=== PATIENT | female | born 1980 | race Caucasian/White ===

== ENCOUNTER → 2016-05-22 | Outpatient (CLI) | payer BC ==
--- NOTE | 2016-05-22 17:01 | RAD ---
Obstetrical ultrasound, 05/22/2016: History: Check anatomy Transabdominal scans were obtained. There is a single intrauterine fetus present in a transverse orientation with the head on the maternal left. The biparietal diameter measures 5.1 cm compatible with a gestational age of 21-22 weeks. This corresponds well to the other measurements and yields a sonographic EDC of 09/28/2016. Normal activity and heart motion were seen. The heart rate was 133 bpm. No specific abnormality is detected. The placenta lies anteriorly with no evidence of a placenta previa. The amniotic fluid volume appears to be within normal limits with KASSY calculated at 17.4. The cervix was not clearly delineated on today's exam. IMPRESSION: Single viable intrauterine fetus of 21-22 weeks gestational age as described above.
== END | disposition home or self-care (01) ==
LOC: US 12:15
PROVIDERS: ATTEND Obstetrics & Gynecology
DX: O09.90 Supervision of high risk pregnancy, unspecified, unspecified trimester (principal); O26.849 Uterine size-date discrepancy, unspecified trimester
CPT/HCPCS: 76805

== ENCOUNTER → 2016-07-31 | Outpatient (CLI) | payer BC ==
[2016-07-17 11:32] VITALS: BP 129/71
[~2016-07-31] MED LIST: PNV1TABL25 PO
== END | disposition home or self-care (01) ==
LOC: LAB 09:49
PROVIDERS: ATTEND Obstetrics & Gynecology
DX: O09.90 Supervision of high risk pregnancy, unspecified, unspecified trimester (principal)
CPT/HCPCS: 36415; 82947; 82950

== ENCOUNTER 2016-08-14 10:48 | Observation (INO) | payer BC ==
[2016-07-17 11:32] VITALS: BP 129/71
== END 2016-08-14 11:45 | disposition home or self-care (01) ==
LOC: 3 SO LND 10:48
PROVIDERS: ADMIT Obstetrics & Gynecology; ATTEND Obstetrics & Gynecology
DX: O24.419 Gestational diabetes mellitus in pregnancy, unspecified control (principal); Z3A.33 33 weeks gestation of pregnancy
CPT/HCPCS: G0378; G0379; 59025

== ENCOUNTER 2016-09-11 11:27 | Observation (INO) | payer BC ==
[2016-07-17 11:32] VITALS: BP 129/71
== END 2016-09-11 12:20 | disposition home or self-care (01) ==
LOC: 3 SO LND 11:27
PROVIDERS: ADMIT Obstetrics & Gynecology; ATTEND Obstetrics & Gynecology
DX: O24.419 Gestational diabetes mellitus in pregnancy, unspecified control (principal); Z3A.37 37 weeks gestation of pregnancy
CPT/HCPCS: G0378; G0379; 59025

== ENCOUNTER 2016-09-18 12:18 | Observation (INO) | payer BC ==
[2016-07-17 11:32] VITALS: BP 129/71
[~2016-09-18] VITALS: Ht 162.6 cm; Wt 98.9 kg
[2016-09-18 13:22] LABS: BASO % 0 % (0-3); EOS % 1 % (0-3); HEMATOCRIT 34.5 % (36.0-47.0); HEMOGLOBIN 11.7 g/dL (12.0-15.5); LYMPH % 23 % (24-48); MEAN CORPUSCULAR HEMOGLOBIN 29 pg (25-35); MEAN CORPUSCULAR HGB CONC 34 g/dL (31-37); MEAN CORPUSCULAR VOLUME 86 fL (79-100); MONO % 9 % (0-9); NEUT % 68 % (31-73); PLATELET COUNT 184 x10^3/uL (140-400); RED CELL DISTRIBUTION WIDTH 13.5 % (11.5-14.5); WHITE BLOOD COUNT 8.9 x10^3/uL (4.0-11.0)
[2016-09-18 13:41] LABS: ALBUMIN 2.2 g/dL (3.4-5.0); ALBUMIN/GLOBULIN RATIO 0.6 (1.0-1.7); CALCIUM 8.7 mg/dL (8.5-10.1); CREATININE 0.6 mg/dL (0.6-1.0); GFR 114.4; POTASSIUM 3.7 mmol/L (3.5-5.1); TOTAL BILIRUBIN 0.3 mg/dL (0.2-1.0); TOTAL PROTEIN 5.9 g/dL (6.4-8.2)
== END 2016-09-18 14:23 | disposition home or self-care (01) ==
LOC: 3 SO LND 12:18
PROVIDERS: ADMIT Obstetrics & Gynecology; ATTEND Obstetrics & Gynecology
DX: O13.3 Gestational [pregnancy-induced] hypertension without significant proteinuria, third trimester (principal); Z3A.37 37 weeks gestation of pregnancy
CPT/HCPCS: 36415; 80053; 85027; G0378; G0379